=== PATIENT | male | born 1935 | race Two or more races ===

== ENCOUNTER 2020-10-29 21:50 | Inpatient (IN) | payer OTHER ==
[~2020-10-29] VITALS: Ht 165.1 cm; Wt 73.4 kg
[2020-10-29] MEDS ORDERED: cefTRIAXone 1GM/50ML D5W 50 ML IV ONE (22:15)
[2020-10-29] MEDS ORDERED: LORazepam 2MG/ML-1ML VIAL IV ONE (23:00)
[2020-10-29] MEDS ORDERED: LORazepam 2MG/ML-1ML VIAL ONE (23:01)
[2020-10-29 23:21] LABS: INR 1.1 (0.9-1.15); Partial Thromboplastin Time 24.4 sec (23.6-33.0)
[2020-10-29 23:25] LABS: Potassium 5.3 mmol/L (3.5-5.1)
[2020-10-29 23:28] LABS: Albumin 3.3 g/dL (3.4-5.0); BUN/Creatinine Ratio 14.4; Magnesium 2.8 mg/dL (1.6-2.6)
[2020-10-29 23:32] LABS: Hematocrit 42.9 % (41.0-53.0); Hemoglobin 13.9 g/dL (13.5-17.5); Mean Corpuscular Hemoglobin 30.4 pg (28.0-32.0); Mean Corpuscular Hgb Conc. 32.4 g/dL (32.0-36.0); Mean Corpuscular Volume 94.1 fL (80.0-100.0); Red Blood Cells 4.56 10^6/uL (4.5-5.90); Red Cell Distribution Width 13.9 % (11.8-14.3); White Blood Cell 19.1 10^3/uL (4.4-10.8)
[2020-10-29 23:33] LABS: Bilirubin, Total 0.6 mg/dL (0.2-1.0); Total Protein 7.6 g/dL (6.4-8.2)
[2020-10-29 23:36] LABS: Basophils % (manual) 0 (0.0-2.0); Blast Cells 0; Eosinophils % (manual) 0 (0-7); Metamyelocytes % 0; Myelocytes % 0; Promyelocytes % 0; Reactive Lymphocytes 0
[2020-10-30 00:05] LABS: Band Neutrophils % (manual) 29; Lymphocytes % (manual) 1 (10.0-50.0); Monocytes % (manual) 11 (0-12)
[2020-10-30] MEDS ORDERED: MORPHINE SULFATE INJECTION 2 MG/ML SYRG IV PRN (00:45)
[2020-10-30] MEDS ORDERED: ENOXAPARIN SOD 100 MG/1 ML SYRINGE SC ONE (00:45)
[2020-10-30] MEDS ORDERED: ONDANSETRON HCL 4 MG/2 ML VIAL IV PRN (00:45)
[2020-10-30] MEDS ORDERED: NITROGLYCERIN 0.4 MG SL TAB SL PRN (00:45)
[2020-10-30] MEDS ORDERED: SODIUM BICARBONATE 8.4% INJ 50ML SYRINGE ONE (01:22)
[2020-10-30 01:23] LABS: Lactic Acid w/Reflex 8.3 mmol/L (0.4-2.0)
[2020-10-30] MEDS: SODIUM BICARBONATE 50ML VIAL 50 ML in SOD CHL 0.45% 1,000 ML IV SCH ×2 (01:30→16:09)
[2020-10-30] MEDS: LORazepam 2MG/ML-1ML VIAL IV PRN ×3 (01:42→06:55)
[2020-10-30] MEDS ORDERED: SODIUM CHLORIDE 0.9% 500 ML IV ONE (02:15)
[2020-10-30] MEDS ORDERED: VANCOMYCIN PER PHARMACY 0 MG IV SCH (02:30)
[2020-10-30] MEDS ORDERED: VANCOMYCIN 1GM/250ML 250 ML IV ONE (02:45)
[2020-10-30] MEDS: PANTOPRAZOLE 40 MG/10 ML VIAL INJ IV SCH (09:22)
[2020-10-30] MEDS: ASPirin 81 mg TAB PO SCH (09:22)
[2020-10-30] MEDS: cefTRIAXone 1GM/50ML D5W 50 ML IV SCH (09:22)
[2020-10-30] MEDS ORDERED: SODIUM CHLORIDE 0.9% 1,000 ML IV ONE (10:00)
[2020-10-30] MEDS ORDERED: methylPREDNISolone SOD SUCC 40 MG/ML VL IV ONE (10:15)
[2020-10-30] MEDS: ACETAMINOPHEN 650 MG RECT SUPP PR PRN (10:42)
[2020-10-30] MEDS ORDERED: ENOXAPARIN SOD 80 MG/0.8ML SYRINGE SC ONE (11:00)
[2020-10-30 11:03] LABS: Basophils # (auto) 0 10 ^3/uL (0-0.2); Basophils % (auto) 0.2 % (0.0-2.0); Eosinophils # (auto) 0 10 ^3/uL (0-0.8); Hematocrit 36.1 % (41.0-53.0); Lymphocytes # (auto) 0.8 10 ^3/uL (0.4-5.4); Lymphocytes % (auto) 4.6 % (10.0-50.0); Mean Corpuscular Hemoglobin 30.4 pg (28.0-32.0); Mean Corpuscular Hgb Conc. 33.2 g/dL (32.0-36.0); Mean Corpuscular Volume 91.8 fL (80.0-100.0); Monocytes # (auto) 1.7 10 ^3/uL (0-1.3); Monocytes % (auto) 10.1 % (0.0-12.0); Neutrophils # (auto) 14.4 10 ^3/uL (1.6-8.6); Neutrophils % (auto) 85.1 % (37.0-80.0); Red Blood Cells 3.93 10^6/uL (4.5-5.90); Red Cell Distribution Width 13.5 % (11.8-14.3)
[2020-10-30 11:08] LABS: Albumin 2.8 g/dL (3.4-5.0); Calcium 7.9 mg/dL (8.5-10.1)
[2020-10-30 11:14] LABS: BUN/Creatinine Ratio 20.9; Bilirubin, Total 0.4 mg/dL (0.2-1.0); Total Protein 6.4 g/dL (6.4-8.2)
[2020-10-30 11:39] LABS: Potassium 5.6 mmol/L (3.5-5.1)
[2020-10-30 12:15] LABS: Cholesterol 140 mg/dL (< 200); HDL Cholesterol 29 mg/dL (40-59); LDL Cholesterol 84 mg/dL (< 100); Triglycerides 134 mg/dL (< 150)
[2020-10-30 12:21] LABS: Urine WBC None Seen /hpf (0 - 3)
[2020-10-30 12:43] VITALS: BP 136/66
[2020-10-30 12:43] LABS: Urine Bacteria NONE SEEN /hpf (None Seen); Urine Blood 2+ /uL (Negative); Urine Hyaline Cast FEW /lpf (0 - 2); Urine Specific Gravity 1.018 (1.001-1.035)
[2020-10-30 14:42] VITALS: BP 136/66
[2020-10-30 17:00] VITALS: BP 148/61
[2020-10-30] MEDS ORDERED: LIDOCAINE 2% JELLY 11ml (GLYDO) UR ONE (17:15)
[2020-10-30] MEDS: ATORVASTATIN 20 MG TAB PO SCH (18:40)
[2020-10-30 21:19] VITALS: BP 148/66
[2020-10-30 22:23] VITALS: BP 148/66
[2020-10-31] MEDS: LORazepam 2MG/ML-1ML VIAL IV PRN (00:51)
[2020-10-31] MEDS ORDERED: DEXTROSE (50%) 50ML SYRG IV PRN (01:15)
[2020-10-31 06:06] LABS: Basophils # (auto) 0 10 ^3/uL (0-0.2); Basophils % (auto) 0.2 % (0.0-2.0); Eosinophils # (auto) 0 10 ^3/uL (0-0.8); Hematocrit 28.7 % (41.0-53.0); Lymphocytes # (auto) 0.9 10 ^3/uL (0.4-5.4); Lymphocytes % (auto) 5.4 % (10.0-50.0); Mean Corpuscular Hemoglobin 31.7 pg (28.0-32.0); Mean Corpuscular Hgb Conc. 34.7 g/dL (32.0-36.0); Mean Corpuscular Volume 91.3 fL (80.0-100.0); Monocytes # (auto) 1.7 10 ^3/uL (0-1.3); Monocytes % (auto) 10.1 % (0.0-12.0); Neutrophils # (auto) 14.4 10 ^3/uL (1.6-8.6); Neutrophils % (auto) 84.3 % (37.0-80.0); Nucleated Red Blood Cells % 0.1 %; Red Blood Cells 3.15 10^6/uL (4.5-5.90); Red Cell Distribution Width 13.5 % (11.8-14.3); White Blood Cell 17.1 10^3/uL (4.4-10.8)
[2020-10-31 06:51] LABS: Albumin 2.4 g/dL (3.4-5.0); BUN/Creatinine Ratio 34.2; Bilirubin, Total 0.4 mg/dL (0.2-1.0); Calcium 7.6 mg/dL (8.5-10.1); Total Protein 5.7 g/dL (6.4-8.2)
[2020-10-31] MEDS: ACCU-CHEK COMFORT CURVE STRIP VI SCH ×4 (07:15→21:39)
[2020-10-31] MEDS: InsuLIN REG 1unit/0.01ml Soln (100units/ml) SC SCH ×4 (07:15→21:42)
[2020-10-31] MEDS: cefTRIAXone 1GM/50ML D5W 50 ML IV SCH (07:33)
[2020-10-31 08:00] VITALS: BP 142/76
[2020-10-31] MEDS ORDERED: DIGOXIN (250MCG/ML) 2 ML AMPULE IV ONE (09:00)
[2020-10-31] MEDS: ASPirin 81 mg TAB PO SCH (10:00)
[2020-10-31] MEDS: PANTOPRAZOLE 40 MG/10 ML VIAL INJ IV SCH (10:00)
[2020-10-31] MEDS: METOPROLOL TARTRATE 25 MG TAB PO SCH ×2 (10:00→21:39)
[2020-10-31] MEDS: ENOXAPARIN SOD 80 MG/0.8ML SYRINGE SC SCH (10:01)
[2020-10-31] MEDS: DIGOXIN (250MCG/ML) 2 ML AMPULE IV SCH ×3 (11:45→23:20)
[2020-10-31] MEDS: SODIUM BICARBONATE 50ML VIAL 50 ML in SOD CHL 0.45% 1,000 ML IV SCH ×2 (12:00→23:20)
[2020-10-31] MEDS ORDERED: BUMETANIDE 2.5mg/10ml (0.25 mg/ml) INJ IV ONE (12:00)
[2020-10-31 13:00] VITALS: BP 143/55
[2020-10-31] MEDS: dilTIAZem 25 MG/5 ML VIAL IV ONE ×2 (16:20→17:03)
[2020-10-31] MEDS ORDERED: METOPROLOL TARTRATE 1MG/1ML-5ML VIAL IV PRN (17:00)
[2020-10-31] MEDS ORDERED: LORazepam 2MG/ML-1ML VIAL IV PRN (20:00)
[2020-10-31] MEDS: ATORVASTATIN 20 MG TAB PO SCH (21:16)
[2020-10-31] MEDS: INSULIN LANTUS (GLARGINE) 1 /0.01ml (100units/ml) SC SCH (21:40)
[2020-10-31 22:00] VITALS: BP 132/65
[2020-11-01 05:00] VITALS: BP 134/96
[2020-11-01] MEDS: InsuLIN REG 1unit/0.01ml Soln (100units/ml) SC SCH ×4 (05:43→22:29)
[2020-11-01] MEDS: ACCU-CHEK COMFORT CURVE STRIP VI SCH ×4 (05:43→22:22)
[2020-11-01 08:51] VITALS: BP 125/63
[2020-11-01] MEDS: cefTRIAXone 1GM/50ML D5W 50 ML IV SCH (09:25)
[2020-11-01] MEDS: ASPirin 81 mg TAB PO SCH (09:37)
[2020-11-01] MEDS: METOPROLOL TARTRATE 25 MG TAB PO SCH ×2 (09:38→22:00)
[2020-11-01] MEDS: ENOXAPARIN SOD 80 MG/0.8ML SYRINGE SC SCH (10:00)
[2020-11-01] MEDS: PANTOPRAZOLE 40 MG/10 ML VIAL INJ IV SCH (10:00)
[2020-11-01 11:48] LABS: BUN/Creatinine Ratio 35.3; Calcium 8.2 mg/dL (8.5-10.1)
[2020-11-01 12:11] LABS: Basophils # (auto) 0.1 10 ^3/uL (0-0.2); Basophils % (auto) 0.5 % (0.0-2.0); Eosinophils # (auto) 0 10 ^3/uL (0-0.8); Eosinophils % (auto) 0.3 % (0.0-7.0); Hematocrit 27.5 % (41.0-53.0); Hemoglobin 9.1 g/dL (13.5-17.5); Lymphocytes # (auto) 1.2 10 ^3/uL (0.4-5.4); Lymphocytes % (auto) 10.5 % (10.0-50.0); Mean Corpuscular Hemoglobin 30.5 pg (28.0-32.0); Mean Corpuscular Hgb Conc. 33.1 g/dL (32.0-36.0); Mean Corpuscular Volume 92.2 fL (80.0-100.0); Monocytes # (auto) 1.5 10 ^3/uL (0-1.3); Monocytes % (auto) 13.6 % (0.0-12.0); Neutrophils # (auto) 8.4 10 ^3/uL (1.6-8.6); Neutrophils % (auto) 75.1 % (37.0-80.0); Nucleated Red Blood Cells % 0.6 %; Red Blood Cells 2.98 10^6/uL (4.5-5.90); Red Cell Distribution Width 13.9 % (11.8-14.3); White Blood Cell 11.2 10^3/uL (4.4-10.8)
[2020-11-01 13:34] VITALS: BP 112/39
[2020-11-01] MEDS: SODIUM BICARBONATE 50ML VIAL 50 ML in SOD CHL 0.45% 1,000 ML IV SCH (15:50)
[2020-11-01 16:49] VITALS: BP 118/76
[2020-11-01] MEDS: LORazepam 2MG/ML-1ML VIAL IV PRN (18:23)
[2020-11-01 22:00] VITALS: BP 134/55
[2020-11-01] MEDS: ATORVASTATIN 20 MG TAB PO SCH (22:00)
[2020-11-01] MEDS: INSULIN LANTUS (GLARGINE) 1 /0.01ml (100units/ml) SC SCH (22:29)
[2020-11-02] MEDS: SODIUM BICARBONATE 50ML VIAL 50 ML in SOD CHL 0.45% 1,000 ML IV SCH ×3 (03:53→22:20)
[2020-11-02 05:00] VITALS: BP 142/59
[2020-11-02 05:30] LABS: Potassium 3.6 mmol/L (3.5-5.1)
[2020-11-02 05:33] LABS: BUN/Creatinine Ratio 33.3; Calcium 8.3 mg/dL (8.5-10.1)
[2020-11-02] MEDS: ACCU-CHEK COMFORT CURVE STRIP VI SCH ×4 (06:02→22:11)
[2020-11-02] MEDS: InsuLIN REG 1unit/0.01ml Soln (100units/ml) SC SCH ×4 (06:04→22:15)
[2020-11-02 07:23] LABS: Basophils # (auto) 0 10 ^3/uL (0-0.2); Basophils % (auto) 0.4 % (0.0-2.0); Eosinophils # (auto) 0.2 10 ^3/uL (0-0.8); Eosinophils % (auto) 2.4 % (0.0-7.0); Hematocrit 25.3 % (41.0-53.0); Hemoglobin 8.6 g/dL (13.5-17.5); Lymphocytes # (auto) 1.1 10 ^3/uL (0.4-5.4); Lymphocytes % (auto) 12.1 % (10.0-50.0); Mean Corpuscular Hemoglobin 31.4 pg (28.0-32.0); Mean Corpuscular Hgb Conc. 34.1 g/dL (32.0-36.0); Mean Corpuscular Volume 92.1 fL (80.0-100.0); Monocytes # (auto) 1.1 10 ^3/uL (0-1.3); Monocytes % (auto) 11.7 % (0.0-12.0); Neutrophils # (auto) 6.6 10 ^3/uL (1.6-8.6); Neutrophils % (auto) 73.4 % (37.0-80.0); Nucleated Red Blood Cells % 0.3 %; Red Blood Cells 2.75 10^6/uL (4.5-5.90); Red Cell Distribution Width 13.4 % (11.8-14.3)
[2020-11-02 09:00] VITALS: BP 142/59
[2020-11-02] MEDS: cefTRIAXone 1GM/50ML D5W 50 ML IV SCH (09:00)
[2020-11-02] MEDS: ASPirin 81 mg TAB PO SCH (10:00)
[2020-11-02] MEDS: PANTOPRAZOLE 40 MG/10 ML VIAL INJ IV SCH (10:00)
[2020-11-02] MEDS: METOPROLOL TARTRATE 25 MG TAB PO SCH ×2 (10:00→22:11)
[2020-11-02] MEDS: ENOXAPARIN SOD 80 MG/0.8ML SYRINGE SC SCH (10:00)
[2020-11-02 13:00] VITALS: BP 148/77
[2020-11-02 17:00] VITALS: BP 123/88
[2020-11-02 22:00] VITALS: BP 160/75
[2020-11-02] MEDS: ATORVASTATIN 20 MG TAB PO SCH (22:11)
[2020-11-02] MEDS: INSULIN LANTUS (GLARGINE) 1 /0.01ml (100units/ml) SC SCH (22:15)
[2020-11-03] MEDS: ACCU-CHEK COMFORT CURVE STRIP VI SCH ×4 (06:22→21:50)
[2020-11-03] MEDS: InsuLIN REG 1unit/0.01ml Soln (100units/ml) SC SCH ×4 (06:25→21:52)
[2020-11-03 09:00] VITALS: BP 144/60
[2020-11-03] MEDS: cefTRIAXone 1GM/50ML D5W 50 ML IV SCH (09:00)
[2020-11-03] MEDS: SODIUM BICARBONATE 50ML VIAL 50 ML in SOD CHL 0.45% 1,000 ML IV SCH (10:00)
[2020-11-03] MEDS: METOPROLOL TARTRATE 25 MG TAB PO SCH ×2 (10:07→21:50)
[2020-11-03] MEDS: ASPirin 81 mg TAB PO SCH ×2 (10:08→21:51)
[2020-11-03] MEDS: PANTOPRAZOLE 40 MG/10 ML VIAL INJ IV SCH (10:08)
[2020-11-03] MEDS: ENOXAPARIN SOD 80 MG/0.8ML SYRINGE SC SCH ×2 (10:08→21:50)
[2020-11-03 13:00] VITALS: BP 133/45
[2020-11-03 15:20] LABS: Basophils # (auto) 0 10 ^3/uL (0-0.2); Basophils % (auto) 0.3 % (0.0-2.0); Eosinophils # (auto) 0.1 10 ^3/uL (0-0.8); Eosinophils % (auto) 1.1 % (0.0-7.0); Hematocrit 26.5 % (41.0-53.0); Hemoglobin 8.8 g/dL (13.5-17.5); Lymphocytes # (auto) 0.8 10 ^3/uL (0.4-5.4); Lymphocytes % (auto) 8.8 % (10.0-50.0); Mean Corpuscular Hemoglobin 30.8 pg (28.0-32.0); Mean Corpuscular Hgb Conc. 33.1 g/dL (32.0-36.0); Mean Corpuscular Volume 93.1 fL (80.0-100.0); Monocytes # (auto) 0.9 10 ^3/uL (0-1.3); Monocytes % (auto) 10.4 % (0.0-12.0); Neutrophils # (auto) 6.9 10 ^3/uL (1.6-8.6); Neutrophils % (auto) 79.4 % (37.0-80.0); Nucleated Red Blood Cells % 1.1 %; Red Blood Cells 2.85 10^6/uL (4.5-5.90); Red Cell Distribution Width 13.8 % (11.8-14.3); White Blood Cell 8.7 10^3/uL (4.4-10.8)
[2020-11-03 15:37] LABS: Calcium 8.2 mg/dL (8.5-10.1); Potassium 3.6 mmol/L (3.5-5.1)
[2020-11-03 15:39] LABS: BUN/Creatinine Ratio 26.6
[2020-11-03 17:00] VITALS: BP 122/34
[2020-11-03] MEDS: ATORVASTATIN 20 MG TAB PO SCH (21:49)
[2020-11-03] MEDS: INSULIN LANTUS (GLARGINE) 1 /0.01ml (100units/ml) SC SCH (21:53)
[2020-11-03 22:00] VITALS: BP 145/65
[2020-11-04 05:00] VITALS: BP 131/45
[2020-11-04 06:12] LABS: BUN/Creatinine Ratio 26.2; Calcium 8.1 mg/dL (8.5-10.1); Potassium 3.6 mmol/L (3.5-5.1)
[2020-11-04] MEDS: ACCU-CHEK COMFORT CURVE STRIP VI SCH ×4 (06:50→21:57)
[2020-11-04] MEDS: InsuLIN REG 1unit/0.01ml Soln (100units/ml) SC SCH ×4 (06:52→21:56)
[2020-11-04] MEDS: cefTRIAXone 1GM/50ML D5W 50 ML IV SCH (08:59)
[2020-11-04 09:00] VITALS: BP 140/78
[2020-11-04] MEDS: ASPirin 81 mg TAB PO SCH (10:38)
[2020-11-04] MEDS: METOPROLOL TARTRATE 25 MG TAB PO SCH ×2 (10:38→21:58)
[2020-11-04] MEDS: ENOXAPARIN SOD 80 MG/0.8ML SYRINGE SC SCH (10:40)
[2020-11-04] MEDS: PANTOPRAZOLE 40 MG/10 ML VIAL INJ IV SCH (10:40)
[2020-11-04 13:00] VITALS: BP 129/51
[2020-11-04] MEDS ORDERED: FUROSEMIDE 20 MG/2 ML VIAL IV ONE (13:15)
[2020-11-04 13:48] LABS: Eosinophils # (auto) 0.2 10 ^3/uL (0-0.8); Lymphocytes # (auto) 1.2 10 ^3/uL (0.4-5.4); Lymphocytes % (auto) 14.7 % (10.0-50.0); Monocytes # (auto) 1.4 10 ^3/uL (0-1.3); Neutrophils # (auto) 5.1 10 ^3/uL (1.6-8.6); Red Blood Cells 2.62 10^6/uL (4.5-5.90); White Blood Cell 7.9 10^3/uL (4.4-10.8)
[2020-11-04 13:50] LABS: Basophils # (auto) 0.1 10 ^3/uL (0-0.2); Basophils % (auto) 0.6 % (0.0-2.0); Eosinophils % (auto) 2.5 % (0.0-7.0); Hematocrit 24.3 % (41.0-53.0); Hemoglobin 8.2 g/dL (13.5-17.5); Mean Corpuscular Hemoglobin 31.5 pg (28.0-32.0); Mean Corpuscular Volume 92.6 fL (80.0-100.0); Monocytes % (auto) 17.5 % (0.0-12.0); Neutrophils % (auto) 64.7 % (37.0-80.0); Nucleated Red Blood Cells % 0.9 %; Red Cell Distribution Width 13.6 % (11.8-14.3)
[2020-11-04 17:00] VITALS: BP 134/51
[2020-11-04] MEDS: ALBUTEROL SULF 2.5 MG/0.5ML(0.5%) NEB SOLN NEB PRN (19:19)
[2020-11-04] MEDS: IPRATROPIUM BROM 0.5 MG/2.5ML INH SOL NEB PRN (19:19)
[2020-11-04 19:21] VITALS: BP 139/48
[2020-11-04] MEDS: ATORVASTATIN 20 MG TAB PO SCH (21:57)
[2020-11-04] MEDS: INSULIN LANTUS (GLARGINE) 1 /0.01ml (100units/ml) SC SCH (21:59)
[2020-11-04 22:00] VITALS: BP 143/45
[2020-11-05 05:00] VITALS: BP 139/98
[2020-11-05] MEDS: ACCU-CHEK COMFORT CURVE STRIP VI SCH ×4 (06:54→21:46)
[2020-11-05] MEDS: InsuLIN REG 1unit/0.01ml Soln (100units/ml) SC SCH ×3 (06:55→17:49)
[2020-11-05 09:00] VITALS: BP 140/70
[2020-11-05] MEDS: FUROSEMIDE 20 MG/2 ML VIAL IV SCH (09:20)
[2020-11-05] MEDS: ASPirin 81 mg TAB PO SCH (09:20)
[2020-11-05] MEDS: cefTRIAXone 1GM/50ML D5W 50 ML IV SCH (09:20)
[2020-11-05] MEDS: PANTOPRAZOLE 40 MG/10 ML VIAL INJ IV SCH (09:20)
[2020-11-05] MEDS: METOPROLOL TARTRATE 25 MG TAB PO SCH ×2 (09:21→21:44)
[2020-11-05] MEDS ORDERED: ENOXAPARIN SOD 40 MG/0.4 ML SYRINGE SC SCH (10:00)
[2020-11-05 13:19] VITALS: BP 117/50
[2020-11-05] MEDS: IPRATROPIUM BROM 0.5 MG/2.5ML INH SOL NEB PRN (13:20)
[2020-11-05] MEDS: ALBUTEROL SULF 2.5 MG/0.5ML(0.5%) NEB SOLN NEB PRN (13:20)
[2020-11-05 17:00] VITALS: BP 133/49
[2020-11-05] MEDS: ATORVASTATIN 20 MG TAB PO SCH (21:44)
[2020-11-05 22:00] VITALS: BP 130/74
[2020-11-05 22:44] VITALS: BP 123/58
[2020-11-06] MEDS: InsuLIN REG 1unit/0.01ml Soln (100units/ml) SC SCH ×5 (02:56→23:03)
[2020-11-06] MEDS: INSULIN LANTUS (GLARGINE) 1 /0.01ml (100units/ml) SC SCH ×2 (02:56→23:04)
[2020-11-06 05:00] VITALS: BP 131/93
[2020-11-06 06:16] LABS: BUN/Creatinine Ratio 23.2; Calcium 8.2 mg/dL (8.5-10.1); Potassium 3.7 mmol/L (3.5-5.1)
[2020-11-06] MEDS: ACCU-CHEK COMFORT CURVE STRIP VI SCH ×4 (07:07→22:46)
[2020-11-06 08:40] LABS: Hematocrit 29.8 % (41.0-53.0); Hemoglobin 9.7 g/dL (13.5-17.5); Mean Corpuscular Hemoglobin 30.3 pg (28.0-32.0); Mean Corpuscular Hgb Conc. 32.7 g/dL (32.0-36.0); Mean Corpuscular Volume 92.8 fL (80.0-100.0); Red Blood Cells 3.21 10^6/uL (4.5-5.90); Red Cell Distribution Width 13.4 % (11.8-14.3); White Blood Cell 9.4 10^3/uL (4.4-10.8)
[2020-11-06 09:00] VITALS: BP 124/46
[2020-11-06 09:01] LABS: Basophils % (manual) 0 (0.0-2.0); Blast Cells 0; Metamyelocytes % 0; Myelocytes % 0; Promyelocytes % 0; Reactive Lymphocytes 0
[2020-11-06 09:23] LABS: Band Neutrophils % (manual) 8; Eosinophils % (manual) 1 (0-7); Lymphocytes % (manual) 11 (10.0-50.0); Monocytes % (manual) 12 (0-12)
[2020-11-06] MEDS: PANTOPRAZOLE 40 MG/10 ML VIAL INJ IV SCH (10:24)
[2020-11-06] MEDS: ASPirin 81 mg TAB PO SCH (10:24)
[2020-11-06] MEDS: FUROSEMIDE 20 MG/2 ML VIAL IV SCH (10:26)
[2020-11-06] MEDS: METOPROLOL TARTRATE 25 MG TAB PO SCH ×2 (10:26→22:46)
[2020-11-06] MEDS ORDERED: APIXABAN 5 MG TAB PO SCH (11:00)
[2020-11-06 13:00] VITALS: BP 131/52
[2020-11-06 17:00] VITALS: BP 136/64
[2020-11-06] MEDS: IPRATROPIUM BROM 0.5 MG/2.5ML INH SOL NEB PRN (19:45)
[2020-11-06] MEDS: ALBUTEROL SULF 2.5 MG/0.5ML(0.5%) NEB SOLN NEB PRN (19:45)
[2020-11-06 22:10] VITALS: BP 114/53
[2020-11-06] MEDS: ATORVASTATIN 20 MG TAB PO SCH (22:45)
[2020-11-06] MEDS: APIXABAN 2.5 MG TAB PO SCH (22:46)
[2020-11-07] MEDS: ALBUTEROL SULF 2.5 MG/0.5ML(0.5%) NEB SOLN NEB PRN (02:17)
[2020-11-07] MEDS: IPRATROPIUM BROM 0.5 MG/2.5ML INH SOL NEB PRN (02:17)
[2020-11-07] MEDS ORDERED: FUROSEMIDE 40 MG/4 ML VIAL IV ONE (03:00)
[2020-11-07 05:17] VITALS: BP 132/51
[2020-11-07] MEDS: InsuLIN REG 1unit/0.01ml Soln (100units/ml) SC SCH ×4 (07:05→22:00)
[2020-11-07] MEDS: ACCU-CHEK COMFORT CURVE STRIP VI SCH ×4 (07:05→22:00)
[2020-11-07 09:00] VITALS: BP 111/52
[2020-11-07] MEDS: APIXABAN 2.5 MG TAB PO SCH ×2 (09:42→22:00)
[2020-11-07] MEDS: PANTOPRAZOLE 40 MG/10 ML VIAL INJ IV SCH (09:42)
[2020-11-07] MEDS: ASPirin 81 mg TAB PO SCH (09:42)
[2020-11-07] MEDS: FUROSEMIDE 20 MG/2 ML VIAL IV SCH (09:42)
[2020-11-07] MEDS: METOPROLOL TARTRATE 25 MG TAB PO SCH ×2 (09:43→22:00)
[2020-11-07] MEDS: ACETAMINOPHEN 650 MG RECT SUPP PR PRN ×2 (12:38→22:37)
[2020-11-07] MEDS ORDERED: REMDESIVIR PER PHARMACY 0 ML IV SCH (16:00)
[2020-11-07 17:00] VITALS: BP 95/27
[2020-11-07] MEDS ORDERED: REMDESIVIR 200 MG in NS 210ml LOADING DOSE ADULT IV ONE (17:00)
[2020-11-07 22:00] VITALS: BP 119/67
[2020-11-07] MEDS: ATORVASTATIN 20 MG TAB PO SCH (22:00)
[2020-11-07] MEDS: INSULIN LANTUS (GLARGINE) 1 /0.01ml (100units/ml) SC SCH (22:00)
[2020-11-07] MEDS: ASCORBIC ACID 500 MG TAB PO SCH (22:00)
[2020-11-08 01:04] VITALS: BP 112/68
[2020-11-08 05:00] VITALS: BP 118/47
[2020-11-08] MEDS: ACETAMINOPHEN 650 MG RECT SUPP PR PRN (05:18)
[2020-11-08] MEDS: InsuLIN REG 1unit/0.01ml Soln (100units/ml) SC SCH ×4 (06:08→21:35)
[2020-11-08] MEDS: ACCU-CHEK COMFORT CURVE STRIP VI SCH ×4 (06:08→21:37)
[2020-11-08 06:58] LABS: Basophils # (auto) 0 10 ^3/uL (0-0.2); Basophils % (auto) 0.3 % (0.0-2.0); Eosinophils # (auto) 0.1 10 ^3/uL (0-0.8); Eosinophils % (auto) 0.9 % (0.0-7.0); Hematocrit 24.1 % (41.0-53.0); Lymphocytes % (auto) 14.5 % (10.0-50.0); Mean Corpuscular Hgb Conc. 33.3 g/dL (32.0-36.0); Mean Corpuscular Volume 90.1 fL (80.0-100.0); Monocytes # (auto) 0.5 10 ^3/uL (0-1.3); Monocytes % (auto) 6.4 % (0.0-12.0); Neutrophils # (auto) 5.6 10 ^3/uL (1.6-8.6); Neutrophils % (auto) 77.9 % (37.0-80.0); Nucleated Red Blood Cells % 0.3 %; Red Blood Cells 2.68 10^6/uL (4.5-5.90); Red Cell Distribution Width 13.7 % (11.8-14.3); White Blood Cell 7.2 10^3/uL (4.4-10.8)
[2020-11-08 07:31] LABS: Potassium 3.7 mmol/L (3.5-5.1)
[2020-11-08 07:41] LABS: Albumin 1.7 g/dL (3.4-5.0); BUN/Creatinine Ratio 24.9; Bilirubin, Total 0.3 mg/dL (0.2-1.0); Calcium 7.9 mg/dL (8.5-10.1); Magnesium 1.9 mg/dL (1.6-2.6); Total Protein 5.7 g/dL (6.4-8.2)
[2020-11-08 09:00] VITALS: BP 135/61
[2020-11-08] MEDS: APIXABAN 2.5 MG TAB PO SCH ×2 (09:20→21:45)
[2020-11-08] MEDS: AZITHROMYCIN 500MG/ 250ML 250 ML IV SCH (09:20)
[2020-11-08] MEDS: ZINC SULFATE 220mg CAP or TAB PO SCH (09:20)
[2020-11-08] MEDS: DexAMETHasone 4 MG TAB PO SCH (09:20)
[2020-11-08] MEDS: PANTOPRAZOLE 40 MG/10 ML VIAL INJ IV SCH (09:21)
[2020-11-08] MEDS: FUROSEMIDE 20 MG/2 ML VIAL IV SCH (09:21)
[2020-11-08] MEDS: ASCORBIC ACID 500 MG TAB PO SCH ×2 (09:21→21:45)
[2020-11-08] MEDS: METOPROLOL TARTRATE 25 MG TAB PO SCH ×2 (09:21→21:46)
[2020-11-08] MEDS: CHOLECALCIFEROL (VITD3) 2,000 UNIT CAP/TAB PO SCH (09:21)
[2020-11-08 13:00] VITALS: BP 113/52
[2020-11-08] MEDS: REMDESIVIR 100mg 100 MG in SODIUM CHL 0.9% 230 ML IV SCH (15:50)
[2020-11-08 17:00] VITALS: BP 127/56
[2020-11-08 21:32] VITALS: BP 120/48
[2020-11-08] MEDS: INSULIN LANTUS (GLARGINE) 1 /0.01ml (100units/ml) SC SCH (21:38)
[2020-11-08] MEDS: ATORVASTATIN 20 MG TAB PO SCH (21:45)
[2020-11-09 05:30] VITALS: BP 130/50
[2020-11-09 06:11] LABS: Albumin 1.7 g/dL (3.4-5.0)
[2020-11-09 06:14] LABS: BUN/Creatinine Ratio 26.8
[2020-11-09 06:17] LABS: Bilirubin, Total 0.3 mg/dL (0.2-1.0); Total Protein 5.9 g/dL (6.4-8.2)
[2020-11-09] MEDS: ACCU-CHEK COMFORT CURVE STRIP VI SCH ×4 (06:17→21:55)
[2020-11-09] MEDS: InsuLIN REG 1unit/0.01ml Soln (100units/ml) SC SCH ×4 (06:24→21:55)
[2020-11-09 06:30] VITALS: BP 125/87
[2020-11-09 09:00] VITALS: BP 131/57
[2020-11-09] MEDS: PANTOPRAZOLE 40 MG/10 ML VIAL INJ IV SCH (10:51)
[2020-11-09] MEDS: APIXABAN 2.5 MG TAB PO SCH ×2 (10:52→21:28)
[2020-11-09] MEDS: ZINC SULFATE 220mg CAP or TAB PO SCH (10:52)
[2020-11-09] MEDS: METOPROLOL TARTRATE 25 MG TAB PO SCH ×2 (10:52→21:28)
[2020-11-09] MEDS: DexAMETHasone 4 MG TAB PO SCH (10:52)
[2020-11-09] MEDS: ASCORBIC ACID 500 MG TAB PO SCH ×2 (10:53→21:28)
[2020-11-09] MEDS: AZITHROMYCIN 500MG/ 250ML 250 ML IV SCH (10:53)
[2020-11-09] MEDS: CHOLECALCIFEROL (VITD3) 2,000 UNIT CAP/TAB PO SCH (10:53)
[2020-11-09 13:00] VITALS: BP 120/51
[2020-11-09] MEDS: REMDESIVIR 100mg 100 MG in SODIUM CHL 0.9% 230 ML IV SCH (15:15)
[2020-11-09 17:00] VITALS: BP 129/86
[2020-11-09] MEDS: ATORVASTATIN 20 MG TAB PO SCH (21:27)
[2020-11-09] MEDS: risperiDONE 1 MG TAB PO SCH (21:28)
[2020-11-09] MEDS: INSULIN LANTUS (GLARGINE) 1 /0.01ml (100units/ml) SC SCH (21:57)
[2020-11-09 21:58] VITALS: BP 143/73
[2020-11-09] MEDS ORDERED: HALOPERIDOL LACTATE 5 MG/ML INJ VIAL IV PRN (22:45)
[2020-11-10 05:30] VITALS: BP 134/69
[2020-11-10 05:40] LABS: Albumin 1.8 g/dL (3.4-5.0); Potassium 3.9 mmol/L (3.5-5.1)
[2020-11-10 05:46] LABS: BUN/Creatinine Ratio 31.1; Bilirubin, Total 0.4 mg/dL (0.2-1.0)
[2020-11-10] MEDS: ACCU-CHEK COMFORT CURVE STRIP VI SCH ×4 (06:06→22:43)
[2020-11-10] MEDS: InsuLIN REG 1unit/0.01ml Soln (100units/ml) SC SCH ×4 (06:08→22:39)
[2020-11-10] MEDS: PANTOPRAZOLE 40 MG/10 ML VIAL INJ IV SCH (08:58)
[2020-11-10] MEDS: APIXABAN 2.5 MG TAB PO SCH ×2 (08:58→22:45)
[2020-11-10] MEDS: DexAMETHasone 4 MG TAB PO SCH (08:58)
[2020-11-10] MEDS: risperiDONE 1 MG TAB PO SCH ×2 (08:59→22:45)
[2020-11-10] MEDS: METOPROLOL TARTRATE 25 MG TAB PO SCH ×2 (08:59→22:45)
[2020-11-10] MEDS: CHOLECALCIFEROL (VITD3) 2,000 UNIT CAP/TAB PO SCH (08:59)
[2020-11-10] MEDS: ZINC SULFATE 220mg CAP or TAB PO SCH (08:59)
[2020-11-10] MEDS: ASCORBIC ACID 500 MG TAB PO SCH ×2 (08:59→22:45)
[2020-11-10 09:00] VITALS: BP 136/81
[2020-11-10] MEDS: AZITHROMYCIN 500MG/ 250ML 250 ML IV SCH (10:05)
[2020-11-10 13:00] VITALS: BP 107/55
[2020-11-10] MEDS: REMDESIVIR 100mg 100 MG in SODIUM CHL 0.9% 230 ML IV SCH (16:00)
[2020-11-10 17:00] VITALS: BP 127/44
[2020-11-10 20:46] VITALS: BP 127/44
[2020-11-10 22:00] VITALS: BP 147/66
[2020-11-10] MEDS: INSULIN LANTUS (GLARGINE) 1 /0.01ml (100units/ml) SC SCH (22:44)
[2020-11-10] MEDS: ATORVASTATIN 20 MG TAB PO SCH (22:45)
[2020-11-11 05:31] VITALS: BP 143/57
[2020-11-11] MEDS: ACCU-CHEK COMFORT CURVE STRIP VI SCH ×4 (06:20→22:50)
[2020-11-11] MEDS: InsuLIN REG 1unit/0.01ml Soln (100units/ml) SC SCH ×4 (06:21→22:50)
[2020-11-11 08:15] LABS: Albumin 2.1 g/dL (3.4-5.0); Calcium 8.5 mg/dL (8.5-10.1); Potassium 4.2 mmol/L (3.5-5.1)
[2020-11-11 08:19] LABS: Bilirubin, Total 0.5 mg/dL (0.2-1.0); Total Protein 6.4 g/dL (6.4-8.2)
[2020-11-11] MEDS: ALBUTEROL SULF 2.5 MG/0.5ML(0.5%) NEB SOLN NEB PRN (08:44)
[2020-11-11] MEDS: IPRATROPIUM BROM 0.5 MG/2.5ML INH SOL NEB PRN (08:44)
[2020-11-11] MEDS: CHOLECALCIFEROL (VITD3) 2,000 UNIT CAP/TAB PO SCH (08:58)
[2020-11-11] MEDS: PANTOPRAZOLE 40 MG/10 ML VIAL INJ IV SCH (08:58)
[2020-11-11] MEDS: risperiDONE 1 MG TAB PO SCH ×2 (08:58→22:00)
[2020-11-11] MEDS: DexAMETHasone 4 MG TAB PO SCH (08:58)
[2020-11-11] MEDS: ASCORBIC ACID 500 MG TAB PO SCH ×2 (08:58→22:01)
[2020-11-11] MEDS: ZINC SULFATE 220mg CAP or TAB PO SCH (08:58)
[2020-11-11] MEDS: APIXABAN 2.5 MG TAB PO SCH ×2 (08:58→21:59)
[2020-11-11 09:00] VITALS: BP 118/37
[2020-11-11] MEDS: METOPROLOL TARTRATE 25 MG TAB PO SCH ×2 (10:00→22:00)
[2020-11-11] MEDS: AZITHROMYCIN 500MG/ 250ML 250 ML IV SCH (11:38)
[2020-11-11 13:00] VITALS: BP 108/75
[2020-11-11] MEDS: REMDESIVIR 100mg 100 MG in SODIUM CHL 0.9% 230 ML IV SCH (15:24)
[2020-11-11 17:00] VITALS: BP 124/65
[2020-11-11] MEDS: ATORVASTATIN 20 MG TAB PO SCH (21:59)
[2020-11-11 22:00] VITALS: BP 104/86
[2020-11-11] MEDS: levETIRAcetam INJ 1,250 MG in D5W 5% 100 ML IV SCH (22:48)
[2020-11-11] MEDS: INSULIN LANTUS (GLARGINE) 1 /0.01ml (100units/ml) SC SCH (22:50)
[2020-11-12] VITALS (8 sets, daily range): BP systolic 111–199; BP diastolic 35–111
[2020-11-12 06:17] LABS: BUN/Creatinine Ratio 33.5; Calcium 8.5 mg/dL (8.5-10.1); Potassium 4.2 mmol/L (3.5-5.1)
[2020-11-12] MEDS: InsuLIN REG 1unit/0.01ml Soln (100units/ml) SC SCH ×4 (06:48→23:05)
[2020-11-12] MEDS: ACCU-CHEK COMFORT CURVE STRIP VI SCH ×4 (06:48→22:07)
[2020-11-12 07:26] LABS: Basophils # (auto) 0 10 ^3/uL (0-0.2); Basophils % (auto) 0.1 % (0.0-2.0); Eosinophils # (auto) 0 10 ^3/uL (0-0.8); Hematocrit 25.2 % (41.0-53.0); Hemoglobin 8.6 g/dL (13.5-17.5); Lymphocytes # (auto) 0.4 10 ^3/uL (0.4-5.4); Lymphocytes % (auto) 3.9 % (10.0-50.0); Mean Corpuscular Hemoglobin 30.6 pg (28.0-32.0); Monocytes # (auto) 0.8 10 ^3/uL (0-1.3); Monocytes % (auto) 9.2 % (0.0-12.0); Neutrophils # (auto) 7.9 10 ^3/uL (1.6-8.6); Neutrophils % (auto) 86.8 % (37.0-80.0); Nucleated Red Blood Cells % 0.5 %; Red Cell Distribution Width 14.4 % (11.8-14.3); White Blood Cell 9.1 10^3/uL (4.4-10.8)
[2020-11-12] MEDS: IPRATROPIUM BROM 0.5 MG/2.5ML INH SOL NEB PRN ×3 (09:29→19:02)
[2020-11-12] MEDS: ALBUTEROL SULF 2.5 MG/0.5ML(0.5%) NEB SOLN NEB PRN (09:29)
[2020-11-12] MEDS: levETIRAcetam INJ 1,250 MG in D5W 5% 100 ML IV SCH ×2 (09:30→22:21)
[2020-11-12] MEDS: AZITHROMYCIN 500MG/ 250ML 250 ML IV SCH (10:00)
[2020-11-12] MEDS: PANTOPRAZOLE 40 MG/10 ML VIAL INJ IV SCH (10:00)
[2020-11-12] MEDS: ASCORBIC ACID 500 MG TAB PO SCH ×2 (10:00→22:00)
[2020-11-12] MEDS: DexAMETHasone 4 MG TAB PO SCH (10:00)
[2020-11-12] MEDS: CHOLECALCIFEROL (VITD3) 2,000 UNIT CAP/TAB PO SCH (10:00)
[2020-11-12] MEDS: risperiDONE 1 MG TAB PO SCH ×2 (10:00→22:00)
[2020-11-12] MEDS: APIXABAN 2.5 MG TAB PO SCH ×2 (10:00→22:00)
[2020-11-12] MEDS: ZINC SULFATE 220mg CAP or TAB PO SCH (10:00)
[2020-11-12] MEDS: METOPROLOL TARTRATE 25 MG TAB PO SCH ×2 (10:00→22:00)
[2020-11-12] MEDS: ALBUTEROL SULF 2.5 MG/0.5ML(0.5%) NEB SOLN NEB SCH ×2 (13:06→19:02)
[2020-11-12] MEDS: LORazepam 2MG/ML-1ML VIAL IV PRN (19:43)
[2020-11-12] MEDS: ACETAMINOPHEN 650 MG RECT SUPP PR PRN (19:43)
[2020-11-12] MEDS ORDERED: AMIODARONE HCL 150 MG in D5W 5% 100 ML IV ONE (21:30)
[2020-11-12] MEDS ORDERED: AMIODARONE 450mg/250ml AE 250 ML IV ONE (21:45)
[2020-11-12] MEDS: ATORVASTATIN 20 MG TAB PO SCH (22:00)
[2020-11-12] MEDS: INSULIN LANTUS (GLARGINE) 1 /0.01ml (100units/ml) SC SCH (22:00)
[2020-11-13] VITALS (8 sets, daily range): BP systolic 105–164; BP diastolic 47–69
[2020-11-13] MEDS: IPRATROPIUM BROM 0.5 MG/2.5ML INH SOL NEB PRN ×3 (00:21→19:31)
[2020-11-13] MEDS: ALBUTEROL SULF 2.5 MG/0.5ML(0.5%) NEB SOLN NEB SCH ×4 (00:21→19:31)
[2020-11-13] MEDS: LORazepam 2MG/ML-1ML VIAL IV PRN (01:04)
[2020-11-13] MEDS ORDERED: AMIODARONE 450mg/250ml AE 250 ML IV SCH ×2 (03:45→05:00)
[2020-11-13] MEDS: ACETAMINOPHEN 650 MG RECT SUPP PR PRN (04:09)
[2020-11-13] MEDS: InsuLIN REG 1unit/0.01ml Soln (100units/ml) SC SCH ×4 (06:24→22:04)
[2020-11-13] MEDS: ACCU-CHEK COMFORT CURVE STRIP VI SCH ×4 (06:26→21:57)
[2020-11-13 06:27] LABS: Basophils # (auto) 0 10 ^3/uL (0-0.2); Eosinophils # (auto) 0 10 ^3/uL (0-0.8); Hematocrit 28.1 % (41.0-53.0); Hemoglobin 9.1 g/dL (13.5-17.5); Lymphocytes # (auto) 0.4 10 ^3/uL (0.4-5.4); Lymphocytes % (auto) 3.6 % (10.0-50.0); Mean Corpuscular Hemoglobin 30.1 pg (28.0-32.0); Mean Corpuscular Hgb Conc. 32.5 g/dL (32.0-36.0); Mean Corpuscular Volume 92.5 fL (80.0-100.0); Monocytes # (auto) 0.8 10 ^3/uL (0-1.3); Monocytes % (auto) 7.1 % (0.0-12.0); Neutrophils # (auto) 9.4 10 ^3/uL (1.6-8.6); Neutrophils % (auto) 89.3 % (37.0-80.0); Nucleated Red Blood Cells % 0.8 %; Red Blood Cells 3.04 10^6/uL (4.5-5.90); Red Cell Distribution Width 14.9 % (11.8-14.3); White Blood Cell 10.6 10^3/uL (4.4-10.8)
[2020-11-13 06:41] LABS: BUN/Creatinine Ratio 30.9; Calcium 8.2 mg/dL (8.5-10.1); Potassium 4.8 mmol/L (3.5-5.1)
[2020-11-13] MEDS: DexAMETHasone 4 MG TAB PO SCH (10:00)
[2020-11-13] MEDS: METOPROLOL TARTRATE 25 MG TAB PO SCH ×2 (10:00→21:57)
[2020-11-13] MEDS: ZINC SULFATE 220mg CAP or TAB PO SCH (10:00)
[2020-11-13] MEDS: CHOLECALCIFEROL (VITD3) 2,000 UNIT CAP/TAB PO SCH (10:00)
[2020-11-13] MEDS: ASCORBIC ACID 500 MG TAB PO SCH ×2 (10:00→21:57)
[2020-11-13] MEDS: AZITHROMYCIN 500MG/ 250ML 250 ML IV SCH (11:47)
[2020-11-13] MEDS: PANTOPRAZOLE 40 MG/10 ML VIAL INJ IV SCH (12:21)
[2020-11-13] MEDS: ENOXAPARIN SOD 80 MG/0.8ML SYRINGE SC SCH (12:21)
[2020-11-13] MEDS: levETIRAcetam INJ 1,250 MG in D5W 5% 100 ML IV SCH ×2 (12:23→22:10)
[2020-11-13] MEDS: PIPERACILLIN-TAZOB 2.25GM 50 ML IV SCH ×2 (14:33→21:46)
[2020-11-13] MEDS ORDERED: SODIUM CHLORIDE 0.9% 1,000 ML IV SCH (19:45)
[2020-11-13] MEDS: DexAMETHasone SOD PHOS 10MG/1ML VIAL INJ IV SCH (20:08)
[2020-11-13] MEDS: ATORVASTATIN 20 MG TAB PO SCH (21:56)
[2020-11-13] MEDS: INSULIN LANTUS (GLARGINE) 1 /0.01ml (100units/ml) SC SCH (22:06)
[2020-11-14] VITALS (7 sets, daily range): BP systolic 114–162; BP diastolic 53–75
[2020-11-14] MEDS: IPRATROPIUM BROM 0.5 MG/2.5ML INH SOL NEB PRN ×3 (00:17→12:25)
[2020-11-14] MEDS: ALBUTEROL SULF 2.5 MG/0.5ML(0.5%) NEB SOLN NEB SCH ×4 (00:17→18:30)
[2020-11-14 06:03] LABS: Basophils # (auto) 0 10 ^3/uL (0-0.2); Basophils % (auto) 0.1 % (0.0-2.0); Eosinophils # (auto) 0 10 ^3/uL (0-0.8); Hematocrit 26.8 % (41.0-53.0); Hemoglobin 8.9 g/dL (13.5-17.5); Lymphocytes # (auto) 0.2 10 ^3/uL (0.4-5.4); Mean Corpuscular Hemoglobin 30.4 pg (28.0-32.0); Mean Corpuscular Hgb Conc. 33.1 g/dL (32.0-36.0); Mean Corpuscular Volume 91.8 fL (80.0-100.0); Monocytes # (auto) 0.2 10 ^3/uL (0-1.3); Monocytes % (auto) 2.7 % (0.0-12.0); Neutrophils # (auto) 6.3 10 ^3/uL (1.6-8.6); Neutrophils % (auto) 94.2 % (37.0-80.0); Nucleated Red Blood Cells % 1.7 %; Red Blood Cells 2.92 10^6/uL (4.5-5.90); Red Cell Distribution Width 15.5 % (11.8-14.3); White Blood Cell 6.7 10^3/uL (4.4-10.8)
[2020-11-14] MEDS: PIPERACILLIN-TAZOB 2.25GM 50 ML IV SCH ×3 (06:32→22:16)
[2020-11-14] MEDS: ACCU-CHEK COMFORT CURVE STRIP VI SCH ×4 (06:32→22:17)
[2020-11-14] MEDS: InsuLIN REG 1unit/0.01ml Soln (100units/ml) SC SCH ×4 (06:34→22:39)
[2020-11-14] MEDS ORDERED: FUROSEMIDE 40 MG/4 ML VIAL IV ONE (07:45)
[2020-11-14 09:38] LABS: BUN/Creatinine Ratio 25.3; Calcium 8.2 mg/dL (8.5-10.1); Magnesium 2.2 mg/dL (1.6-2.6); Potassium 4.8 mmol/L (3.5-5.1)
[2020-11-14] MEDS: levETIRAcetam INJ 1,250 MG in D5W 5% 100 ML IV SCH ×2 (09:53→22:40)
[2020-11-14] MEDS: DexAMETHasone SOD PHOS 10MG/1ML VIAL INJ IV SCH (09:53)
[2020-11-14] MEDS: METOPROLOL TARTRATE 25 MG TAB PO SCH ×2 (09:54→22:17)
[2020-11-14] MEDS: PANTOPRAZOLE 40 MG/10 ML VIAL INJ IV SCH (09:54)
[2020-11-14] MEDS: DIGOXIN (250MCG/ML) 2 ML AMPULE IV SCH (09:54)
[2020-11-14] MEDS: AZITHROMYCIN 500MG/ 250ML 250 ML IV SCH (09:54)
[2020-11-14] MEDS: ZINC SULFATE 220mg CAP or TAB PO SCH (09:54)
[2020-11-14] MEDS: DexAMETHasone 4 MG TAB PO SCH (09:54)
[2020-11-14] MEDS: ENOXAPARIN SOD 80 MG/0.8ML SYRINGE SC SCH (09:55)
[2020-11-14] MEDS: CHOLECALCIFEROL (VITD3) 2,000 UNIT CAP/TAB PO SCH (09:55)
[2020-11-14] MEDS: ASCORBIC ACID 500 MG TAB PO SCH ×2 (09:55→22:17)
[2020-11-14] MEDS: ATORVASTATIN 20 MG TAB PO SCH (22:16)
[2020-11-14] MEDS: INSULIN LANTUS (GLARGINE) 1 /0.01ml (100units/ml) SC SCH (22:25)
[2020-11-15] VITALS (7 sets, daily range): BP systolic 123–160; BP diastolic 38–92
[2020-11-15] MEDS: ALBUTEROL SULF 2.5 MG/0.5ML(0.5%) NEB SOLN NEB SCH ×4 (00:35→20:18)
[2020-11-15] MEDS: PIPERACILLIN-TAZOB 2.25GM 50 ML IV SCH ×3 (06:00→22:13)
[2020-11-15] MEDS: ACCU-CHEK COMFORT CURVE STRIP VI SCH ×4 (06:40→22:14)
[2020-11-15] MEDS: InsuLIN REG 1unit/0.01ml Soln (100units/ml) SC SCH ×4 (06:46→22:23)
[2020-11-15] MEDS: IPRATROPIUM BROM 0.5 MG/2.5ML INH SOL NEB PRN ×3 (07:02→20:18)
[2020-11-15] MEDS ORDERED: FUROSEMIDE 40 MG/4 ML VIAL IV ONE (08:15)
[2020-11-15] MEDS: ZINC SULFATE 220mg CAP or TAB PO SCH (10:00)
[2020-11-15] MEDS: ASCORBIC ACID 500 MG TAB PO SCH ×2 (10:00→22:13)
[2020-11-15] MEDS: CHOLECALCIFEROL (VITD3) 2,000 UNIT CAP/TAB PO SCH (10:00)
[2020-11-15] MEDS: METOPROLOL TARTRATE 25 MG TAB PO SCH ×2 (10:00→22:13)
[2020-11-15] MEDS: DexAMETHasone SOD PHOS 10MG/1ML VIAL INJ IV SCH (10:30)
[2020-11-15] MEDS: DIGOXIN (250MCG/ML) 2 ML AMPULE IV SCH (10:30)
[2020-11-15] MEDS: AZITHROMYCIN 500MG/ 250ML 250 ML IV SCH (10:31)
[2020-11-15] MEDS: PANTOPRAZOLE 40 MG/10 ML VIAL INJ IV SCH (10:31)
[2020-11-15] MEDS: ENOXAPARIN SOD 80 MG/0.8ML SYRINGE SC SCH (10:33)
[2020-11-15] MEDS: levETIRAcetam INJ 1,250 MG in D5W 5% 100 ML IV SCH ×2 (11:10→22:13)
[2020-11-15] MEDS: METOPROLOL TARTRATE 1MG/1ML-5ML VIAL IV PRN (16:38)
[2020-11-15] MEDS: ATORVASTATIN 20 MG TAB PO SCH (22:13)
[2020-11-15] MEDS: INSULIN LANTUS (GLARGINE) 1 /0.01ml (100units/ml) SC SCH (22:23)
[2020-11-16] MEDS: ALBUTEROL SULF 2.5 MG/0.5ML(0.5%) NEB SOLN NEB SCH ×4 (00:31→19:37)
[2020-11-16] MEDS: IPRATROPIUM BROM 0.5 MG/2.5ML INH SOL NEB PRN ×4 (00:32→19:37)
[2020-11-16] MEDS: METOPROLOL TARTRATE 1MG/1ML-5ML VIAL IV PRN ×3 (04:52→16:38)
[2020-11-16 05:00] VITALS: BP 162/68
[2020-11-16] MEDS: PIPERACILLIN-TAZOB 2.25GM 50 ML IV SCH ×3 (05:37→22:29)
[2020-11-16] MEDS: ACCU-CHEK COMFORT CURVE STRIP VI SCH ×4 (06:13→22:33)
[2020-11-16] MEDS: InsuLIN REG 1unit/0.01ml Soln (100units/ml) SC SCH ×4 (06:17→22:32)
[2020-11-16 06:24] LABS: Potassium 3.9 mmol/L (3.5-5.1)
[2020-11-16 06:37] LABS: BUN/Creatinine Ratio 22.2; Calcium 8.6 mg/dL (8.5-10.1)
[2020-11-16 06:44] LABS: Basophils # (auto) 0 10 ^3/uL (0-0.2); Basophils % (auto) 0.2 % (0.0-2.0); Eosinophils # (auto) 0 10 ^3/uL (0-0.8); Hematocrit 34.3 % (41.0-53.0); Lymphocytes # (auto) 0.4 10 ^3/uL (0.4-5.4); Lymphocytes % (auto) 2.9 % (10.0-50.0); Mean Corpuscular Hgb Conc. 32.2 g/dL (32.0-36.0); Mean Corpuscular Volume 90.2 fL (80.0-100.0); Monocytes # (auto) 0.9 10 ^3/uL (0-1.3); Monocytes % (auto) 7.1 % (0.0-12.0); Neutrophils # (auto) 10.9 10 ^3/uL (1.6-8.6); Neutrophils % (auto) 89.8 % (37.0-80.0); Nucleated Red Blood Cells % 0.6 %; Red Cell Distribution Width 14.9 % (11.8-14.3); White Blood Cell 12.2 10^3/uL (4.4-10.8)
[2020-11-16] MEDS ORDERED: FUROSEMIDE 40 MG/4 ML VIAL IV ONE (07:45)
[2020-11-16 08:16] VITALS: BP 135/110
[2020-11-16 09:00] VITALS: BP 135/110
[2020-11-16] MEDS: CHOLECALCIFEROL (VITD3) 2,000 UNIT CAP/TAB PO SCH (10:00)
[2020-11-16] MEDS: METOPROLOL TARTRATE 25 MG TAB PO SCH ×2 (10:00→22:30)
[2020-11-16] MEDS: ASCORBIC ACID 500 MG TAB PO SCH ×2 (10:00→22:31)
[2020-11-16] MEDS: ZINC SULFATE 220mg CAP or TAB PO SCH (10:00)
[2020-11-16] MEDS: levETIRAcetam INJ 1,250 MG in D5W 5% 100 ML IV SCH ×2 (10:22→22:29)
[2020-11-16] MEDS: DexAMETHasone SOD PHOS 10MG/1ML VIAL INJ IV SCH (10:22)
[2020-11-16] MEDS: DIGOXIN (250MCG/ML) 2 ML AMPULE IV SCH (10:22)
[2020-11-16] MEDS: PANTOPRAZOLE 40 MG/10 ML VIAL INJ IV SCH (10:23)
[2020-11-16] MEDS: AZITHROMYCIN 500MG/ 250ML 250 ML IV SCH (10:23)
[2020-11-16] MEDS: ENOXAPARIN SOD 80 MG/0.8ML SYRINGE SC SCH (10:24)
[2020-11-16 12:44] VITALS: BP 117/62
[2020-11-16 16:49] VITALS: BP 165/62
[2020-11-16 22:00] VITALS: BP 124/43
[2020-11-16] MEDS: ATORVASTATIN 20 MG TAB PO SCH (22:30)
[2020-11-16] MEDS: INSULIN LANTUS (GLARGINE) 1 /0.01ml (100units/ml) SC SCH (22:33)
[2020-11-17] VITALS (7 sets, daily range): BP systolic 127–158; BP diastolic 48–89
[2020-11-17] MEDS: ALBUTEROL SULF 2.5 MG/0.5ML(0.5%) NEB SOLN NEB SCH ×4 (00:49→18:26)
[2020-11-17] MEDS: IPRATROPIUM BROM 0.5 MG/2.5ML INH SOL NEB PRN ×4 (00:49→18:26)
[2020-11-17] MEDS: METOPROLOL TARTRATE 1MG/1ML-5ML VIAL IV PRN (01:31)
[2020-11-17 05:42] LABS: Basophils # (auto) 0 10 ^3/uL (0-0.2); Basophils % (auto) 0.1 % (0.0-2.0); Eosinophils # (auto) 0 10 ^3/uL (0-0.8); Hematocrit 34.5 % (41.0-53.0); Hemoglobin 11.1 g/dL (13.5-17.5); Lymphocytes # (auto) 0.4 10 ^3/uL (0.4-5.4); Lymphocytes % (auto) 3.5 % (10.0-50.0); Mean Corpuscular Hemoglobin 29.7 pg (28.0-32.0); Mean Corpuscular Volume 92.7 fL (80.0-100.0); Monocytes % (auto) 7.9 % (0.0-12.0); Neutrophils # (auto) 10.9 10 ^3/uL (1.6-8.6); Neutrophils % (auto) 88.5 % (37.0-80.0); Red Blood Cells 3.72 10^6/uL (4.5-5.90); Red Cell Distribution Width 15.5 % (11.8-14.3); White Blood Cell 12.3 10^3/uL (4.4-10.8)
[2020-11-17] MEDS: PIPERACILLIN-TAZOB 2.25GM 50 ML IV SCH ×3 (05:50→22:26)
[2020-11-17 05:58] LABS: BUN/Creatinine Ratio 22.5; Calcium 8.6 mg/dL (8.5-10.1)
[2020-11-17] MEDS: ACCU-CHEK COMFORT CURVE STRIP VI SCH ×4 (06:35→23:09)
[2020-11-17] MEDS: InsuLIN REG 1unit/0.01ml Soln (100units/ml) SC SCH ×2 (06:35→12:22)
[2020-11-17] MEDS: DexAMETHasone SOD PHOS 10MG/1ML VIAL INJ IV SCH (08:38)
[2020-11-17] MEDS: PANTOPRAZOLE 40 MG/10 ML VIAL INJ IV SCH (08:39)
[2020-11-17] MEDS: AZITHROMYCIN 500MG/ 250ML 250 ML IV SCH (08:39)
[2020-11-17] MEDS: DIGOXIN (250MCG/ML) 2 ML AMPULE IV SCH (08:39)
[2020-11-17] MEDS: METOPROLOL TARTRATE 25 MG TAB PO SCH ×2 (08:40→22:27)
[2020-11-17] MEDS: ENOXAPARIN SOD 80 MG/0.8ML SYRINGE SC SCH (08:41)
[2020-11-17] MEDS: ZINC SULFATE 220mg CAP or TAB PO SCH ×2 (08:49→08:57)
[2020-11-17] MEDS: CHOLECALCIFEROL (VITD3) 2,000 UNIT CAP/TAB PO SCH ×2 (08:49→08:57)
[2020-11-17] MEDS: ASCORBIC ACID 500 MG TAB PO SCH ×3 (08:49→22:27)
[2020-11-17] MEDS: levETIRAcetam INJ 1,250 MG in D5W 5% 100 ML IV SCH ×2 (09:14→22:26)
[2020-11-17] MEDS ORDERED: TPN PER PHARMACY 0 ML IV SCH (10:30)
[2020-11-17] MEDS: D5W/SOD CHL 0.45% 1,000 ML IV SCH (10:59)
[2020-11-17] MEDS ORDERED: DEXTROSE (50%) 50ML SYRG IV PRN (13:15)
[2020-11-17] MEDS ORDERED: InsuLIN REG 1unit/0.01ml Soln (100units/ml) SC SCH ×2 (17:00→22:00)
[2020-11-17] MEDS ORDERED: AMINO ACID INFUSION IN D10W 1,000 ML IV NR (20:00)
[2020-11-17] MEDS: ATORVASTATIN 20 MG TAB PO SCH (22:26)
[2020-11-17] MEDS: INSULIN LANTUS (GLARGINE) 1 /0.01ml (100units/ml) SC SCH (23:10)
[2020-11-18] VITALS (7 sets, daily range): BP systolic 105–141; BP diastolic 37–61
[2020-11-18] MEDS ORDERED: DEXTROSE (50%) 50ML SYRG IV SCH
[2020-11-18] MEDS: ACCU-CHEK COMFORT CURVE STRIP VI SCH ×2 (00:24→05:57)
[2020-11-18] MEDS: InsuLIN REG 1unit/0.01ml Soln (100units/ml) SC SCH ×2 (00:34→06:12)
[2020-11-18] MEDS: IPRATROPIUM BROM 0.5 MG/2.5ML INH SOL NEB PRN ×4 (00:45→18:51)
[2020-11-18] MEDS: D5W/SOD CHL 0.45% 1,000 ML IV SCH (03:05)
[2020-11-18] MEDS: ALBUTEROL SULF 2.5 MG/0.5ML(0.5%) NEB SOLN NEB SCH ×4 (05:50→18:51)
[2020-11-18 05:54] LABS: Basophils # (auto) 0 10 ^3/uL (0-0.2); Basophils % (auto) 0.4 % (0.0-2.0); Eosinophils # (auto) 0.1 10 ^3/uL (0-0.8); Eosinophils % (auto) 0.9 % (0.0-7.0); Hematocrit 32.1 % (41.0-53.0); Hemoglobin 10.3 g/dL (13.5-17.5); Lymphocytes # (auto) 0.5 10 ^3/uL (0.4-5.4); Lymphocytes % (auto) 4.1 % (10.0-50.0); Mean Corpuscular Hemoglobin 29.7 pg (28.0-32.0); Mean Corpuscular Volume 92.7 fL (80.0-100.0); Monocytes # (auto) 0.5 10 ^3/uL (0-1.3); Monocytes % (auto) 4.2 % (0.0-12.0); Neutrophils % (auto) 90.4 % (37.0-80.0); Nucleated Red Blood Cells % 0.7 %; Red Blood Cells 3.47 10^6/uL (4.5-5.90); Red Cell Distribution Width 14.7 % (11.8-14.3); White Blood Cell 11.1 10^3/uL (4.4-10.8)
[2020-11-18] MEDS: PIPERACILLIN-TAZOB 2.25GM 50 ML IV SCH ×3 (05:57→21:53)
[2020-11-18 06:19] LABS: Potassium 3.9 mmol/L (3.5-5.1)
[2020-11-18 06:28] LABS: Albumin 1.8 g/dL (3.4-5.0); BUN/Creatinine Ratio 24.6; Bilirubin, Total 0.6 mg/dL (0.2-1.0); Calcium 7.7 mg/dL (8.5-10.1); Magnesium 2.1 mg/dL (1.6-2.6); Total Protein 5.9 g/dL (6.4-8.2)
[2020-11-18] MEDS: PANTOPRAZOLE 40 MG/10 ML VIAL INJ IV SCH (08:02)
[2020-11-18] MEDS: DexAMETHasone SOD PHOS 10MG/1ML VIAL INJ IV SCH (08:02)
[2020-11-18] MEDS: DIGOXIN (250MCG/ML) 2 ML AMPULE IV SCH (08:02)
[2020-11-18] MEDS: ZINC SULFATE 220mg CAP or TAB PO SCH (08:03)
[2020-11-18] MEDS: AZITHROMYCIN 500MG/ 250ML 250 ML IV SCH (08:03)
[2020-11-18] MEDS: ASCORBIC ACID 500 MG TAB PO SCH ×2 (08:04→21:44)
[2020-11-18] MEDS: METOPROLOL TARTRATE 25 MG TAB PO SCH ×2 (08:04→21:52)
[2020-11-18] MEDS: CHOLECALCIFEROL (VITD3) 2,000 UNIT CAP/TAB PO SCH (08:04)
[2020-11-18] MEDS: ENOXAPARIN SOD 80 MG/0.8ML SYRINGE SC SCH (08:05)
[2020-11-18] MEDS: SODIUM CHLORIDE 0.9% 1,000 ML IV SCH (10:00)
[2020-11-18] MEDS ORDERED: SODIUM CHLORIDE 0.9% 1,000 ML IV SCH (10:00)
[2020-11-18] MEDS ORDERED: PPN PER PHARMACY 500 ML IV SCH (10:00)
[2020-11-18] MEDS: levETIRAcetam INJ 1,250 MG in D5W 5% 100 ML IV SCH ×2 (11:13→22:16)
[2020-11-18] MEDS ORDERED: PPN PER PHARMACY IV NR ×8 (20:00)
[2020-11-18] MEDS: INSULIN LANTUS (GLARGINE) 1 /0.01ml (100units/ml) SC SCH (21:41)
[2020-11-18] MEDS: ATORVASTATIN 20 MG TAB PO SCH (21:44)
[2020-11-19] MEDS: ALBUTEROL SULF 2.5 MG/0.5ML(0.5%) NEB SOLN NEB SCH ×3 (01:03→12:00)
[2020-11-19] MEDS: IPRATROPIUM BROM 0.5 MG/2.5ML INH SOL NEB PRN ×2 (01:03→06:43)
[2020-11-19 04:38] VITALS: BP 142/44
[2020-11-19] MEDS: PIPERACILLIN-TAZOB 2.25GM 50 ML IV SCH (05:36)
[2020-11-19] MEDS: SODIUM CHLORIDE 0.9% 1,000 ML IV SCH (05:38)
[2020-11-19 05:55] LABS: Basophils % (manual) 0 (0.0-2.0); Blast Cells 0; Hematocrit 32.8 % (41.0-53.0); Hemoglobin 10.1 g/dL (13.5-17.5); Mean Corpuscular Hemoglobin 28.9 pg (28.0-32.0); Mean Corpuscular Hgb Conc. 30.8 g/dL (32.0-36.0); Mean Corpuscular Volume 94.1 fL (80.0-100.0); Monocytes % (manual) 0 (0-12); Promyelocytes % 0; Reactive Lymphocytes 0; Red Blood Cells 3.49 10^6/uL (4.5-5.90); Red Cell Distribution Width 14.9 % (11.8-14.3); White Blood Cell 13.2 10^3/uL (4.4-10.8)
[2020-11-19 06:12] LABS: Potassium 5.3 mmol/L (3.5-5.1)
[2020-11-19 06:25] LABS: Albumin 1.7 g/dL (3.4-5.0); BUN/Creatinine Ratio 21.7; Bilirubin, Total 0.4 mg/dL (0.2-1.0); Calcium 7.8 mg/dL (8.5-10.1); Magnesium 2.4 mg/dL (1.6-2.6); Phosphorus 7.2 mg/dL (2.5-4.90); Total Protein 5.7 g/dL (6.4-8.2)
[2020-11-19 06:57] LABS: Band Neutrophils % (manual) 1; Eosinophils % (manual) 1 (0-7); Lymphocytes % (manual) 13 (10.0-50.0); Metamyelocytes % 2; Myelocytes % 1
[2020-11-19 09:00] VITALS: BP 101/35
[2020-11-19] MEDS ORDERED: DEXTROSE (50%) 50ML SYRG IV SCH (09:00)
[2020-11-19] MEDS: METOPROLOL TARTRATE 25 MG TAB PO SCH ×2 (10:00→10:17)
[2020-11-19] MEDS: ZINC SULFATE 220mg CAP or TAB PO SCH ×2 (10:00→10:12)
[2020-11-19] MEDS: CHOLECALCIFEROL (VITD3) 2,000 UNIT CAP/TAB PO SCH ×2 (10:00→10:13)
[2020-11-19] MEDS: ASCORBIC ACID 500 MG TAB PO SCH ×2 (10:00→10:12)
[2020-11-19] MEDS: DexAMETHasone SOD PHOS 10MG/1ML VIAL INJ IV SCH (10:11)
[2020-11-19] MEDS: PANTOPRAZOLE 40 MG/10 ML VIAL INJ IV SCH (10:12)
[2020-11-19] MEDS: DIGOXIN (250MCG/ML) 2 ML AMPULE IV SCH (10:12)
[2020-11-19] MEDS: ENOXAPARIN SOD 80 MG/0.8ML SYRINGE SC SCH (10:13)
[2020-11-19] MEDS: AZITHROMYCIN 500MG/ 250ML 250 ML IV SCH (10:27)
[2020-11-19] MEDS ORDERED: SODIUM CHLORIDE 0.9% 1,000 ML IV SCH (10:45)
[2020-11-19] MEDS: levETIRAcetam INJ 1,250 MG in D5W 5% 100 ML IV SCH (11:19)
[2020-11-19] MEDS: ACETAMINOPHEN 650 MG RECT SUPP PR PRN (11:19)
[2020-11-19] MEDS ORDERED: InsuLIN REG 1unit/0.01ml Soln (100units/ml) SC SCH (12:00)
[2020-11-19] MEDS ORDERED: ACCU-CHEK COMFORT CURVE STRIP VI SCH (12:00)
[2020-11-19] MEDS ORDERED: LORazepam 2MG/ML-1ML VIAL IV PRN (12:15)
[2020-11-19 12:58] VITALS: BP 97/23
[2020-11-19] MEDS ORDERED: PPN PER PHARMACY IV NR ×7 (20:00)
== END 2020-11-19 15:41 | DRG 100 ==
LOC: EDBD 21:50 → ER 21:53 → TELE 10-30 00:34 → TELE-WESTW 10-30 12:17 → TELE-EAST 11-07 16:30
PROVIDERS: ADMIT Nurse Practitioner; ATTEND Internal Medicine
PROC: 05HB33Z Insertion of Infusion Device into Right Basilic Vein, Percutaneous Approach (ICD-10-PCS; 2020-11-03)
PROC: B54MZZA Ultrasonography of Right Upper Extremity Veins, Guidance (ICD-10-PCS; 2020-11-03)
PROC: XW033E5 Introduction of Remdesivir Anti-infective into Peripheral Vein, Percutaneous Approach, New Technology Group 5 (ICD-10-PCS; principal; 2020-11-07)
PROC: 3E0336Z Introduction of Nutritional Substance into Peripheral Vein, Percutaneous Approach (ICD-10-PCS; 2020-11-17)
DX: G40.201 Localization-related (focal) (partial) symptomatic epilepsy and epileptic syndromes with complex partial seizures, not intractable, with status epilepticus (principal); J96.01 Acute respiratory failure with hypoxia; G93.41 Metabolic encephalopathy; J12.82 Pneumonia due to coronavirus disease 2019; I63.9 Cerebral infarction, unspecified; U07.1 COVID-19; N17.0 Acute kidney failure with tubular necrosis; I21.A1 Myocardial infarction type 2; E87.0 Hyperosmolality and hypernatremia; J98.11 Atelectasis; I48.20 Chronic atrial fibrillation, unspecified; E87.2 Acidosis; R47.01 Aphasia; N13.9 Obstructive and reflux uropathy, unspecified; E87.5 Hyperkalemia; S42.002A Fracture of unspecified part of left clavicle, initial encounter for closed fracture; E11.65 Type 2 diabetes mellitus with hyperglycemia; G83.84 Todd's paralysis (postepileptic); N18.9 Chronic kidney disease, unspecified; Z66 Do not resuscitate; F41.9 Anxiety disorder, unspecified; E11.22 Type 2 diabetes mellitus with diabetic chronic kidney disease; N32.0 Bladder-neck obstruction; N35.919 Unspecified urethral stricture, male, unspecified site; Z51.5 Encounter for palliative care; F03.90 Unspecified dementia, unspecified severity, without behavioral disturbance, psychotic disturbance, mood disturbance, and anxiety; I95.9 Hypotension, unspecified; I12.9 Hypertensive chronic kidney disease with stage 1 through stage 4 chronic kidney disease, or unspecified chronic kidney disease; W18.2XXA Fall in (into) shower or empty bathtub, initial encounter; Y92.091 Bathroom in other non-institutional residence as the place of occurrence of the external cause; Y99.8 Other external cause status; Y93.E1 Activity, personal bathing and showering; Z79.01 Long term (current) use of anticoagulants; Z79.82 Long term (current) use of aspirin; Z79.84 Long term (current) use of oral hypoglycemic drugs; Z79.899 Other long term (current) drug therapy; Z82.5 Family history of asthma and other chronic lower respiratory diseases; Z85.038 Personal history of other malignant neoplasm of large intestine; Z85.46 Personal history of malignant neoplasm of prostate; Z92.3 Personal history of irradiation; Z86.73 Personal history of transient ischemic attack (TIA), and cerebral infarction without residual deficits
CPT/HCPCS: 36415; 36600; 70450; 70551; 71045; 72125; 73030; 74176; 80048; 80053; 80061; 80202; 81001; 82565; 82805; 82962; 83036; 83605; 83735; 83880; 84100; 84154; 84484; 85007; 85025; 85027; 85610; 85730; 87040; 87426; 92610; 93005; 93306; 93970; 93971; 94640; 94668; 95819; 96365; 96366; 96367; 96372; 96375; 96376; 97110; 97116; 97163; 97530; 99291; C9113; G0378; J0696; J1100; J1815; J2543; J7060